=== PATIENT | female | born 1995 | race Caucasian/White ===

== ENCOUNTER 2022-12-06 10:20 | Outpatient (CLI) | payer OTHER, SELFPAY ==
[2022-12-06 20:36] LABS: Hepatitis B Surface Antigen Negative (Negative)
[2022-12-06 20:42] LABS: HAV RESULT Negative (Negative); Hepatitis B Core IgM Result Negative (Negative)
[2022-12-06 20:53] LABS: Hepatitis C Virus Antibody Negative (Negative)
[2022-12-07 06:01] LABS: Trichomonas Vag PCR NOT DETECTED (NOT DETECTE)
[2022-12-07 10:28] LABS: Rapid Plasma Reagin Non-Reactive (NonReactive)
[2022-12-08 11:51] LABS: HIV 1 2 Ag Ab 4th Gen w Rflxs Nonreactive (Nonreactive)
== END 2022-12-06 10:21 | disposition home or self-care (01) ==
LOC: ANHGOSHLAB 10:21
PROVIDERS: PCP Emergency Medicine; Visit Provider Emergency Medicine
DX: Z11.3 Encounter for screening for infections with a predominantly sexual mode of transmission (principal)
CPT/HCPCS: 36415; 80074; 86592; 87389; 87661